=== PATIENT | female | born 1980 | race Caucasian/White ===

== ENCOUNTER 2020-10-17 13:26 | Emergency (ER) | payer OTHER, SELFPAY ==
[2020-10-17 13:26] VITALS: BP 127/81; PULSE 91; RESP 14; TEMP 36.7; O2SAT 99; BMI 24.9
--- NOTE | 2020-10-17 13:41 | XR_ITS ---
PROCEDURE: XR FOOT RT MIN 3V CLINICAL INDICATION: box of tiles fell on top of foot Posttraumatic pain COMPARISON: No exams were available for comparison FINDINGS: No fracture or dislocation. No lytic or blastic change. There is normal mineralization. There are hypertrophic changes at the distal aspect of the 1st metatarsal with soft tissue swelling at this area and some cortical irregularity at the distal aspect of the 1st metatarsal medially. Other findings:None. IMPRESSION: Hypertrophic changes at the distal aspect of the 1st metatarsal with soft tissue swelling. There is some cortical regularity at the distal 1st metatarsal medially which could be due to chronic degenerative change. Infection would be included in the differential diagnosis. Dictated by: Aguila Reynoso MD 10/17/2020 17:31 Aguila Reynoso MD in [place] 10/17/2020 17:31
--- NOTE | 2020-10-17 14:23 | HMH.EDUTC ---
[facility] [place] Disposition Clinical Impression: Right foot injury Qualifiers: Encounter type: initial encounter Qualified Code(s): S99.921A - Unspecified injury of right foot, initial encounter Foot fracture, right Qualifiers: Encounter type: initial encounter Fracture type: closed Qualified Code(s): S92.901A - Unspecified fracture of right foot, initial encounter for closed fracture Disposition: Home, Self-Care Condition on Discharge: Good Instructions: How to Use Crutches, DI for Foot Fracture Additional Instructions: Rest the extremity, apply ice for 15 minutes as tolerated three or four times per day, Wear the ricky wrap for compression, Elevate the extremity as tolerated while you are resting. Take ibuprofen for pain. I sent in a prescription to your pharmacy. Follow up with Dr. Correa (podiatry) or your orthopedist or proposal lead writer of your choice. I put in a referral To Dr. Correa, but make sure you follow up appropriately. Follow up with your regular doctor. GO TO THE ER FOR ANY WORSENING SYMPTOMS Prescriptions: Ibuprofen [Ibuprofen 600mg Tablet] 600 mg PO Q6HP PRN #30 tab PRN Reason: Mild Pain Transmission Status: Received by [facility] #[id number] Referrals: Jose Alberto Olvera [Primary Care Provider] - Forms: Work/School Release Time of Disposition: 14:29 Medical Decision Making - Medical Records Medical records reviewed: No: I reviewed the patient's medical records. - Jonh Inquiry Pt receiving controlled substance: No Vital Signs: 10/17/20 13:26 10/17/20 14:30 Temperature 98.1 F 98.1 F Temperature Source Oral Oral Pulse Rate 91 H Pulse Rate [Right] 91 H Respiratory Rate 14 14 Blood Pressure 127/81 Blood Pressure [Right Arm] 127/81 Blood Pressure Mean [Right Arm] 96 02 Sat by Pulse Oximetry 99 - Radiology Data #1 Image(s): Foot/Toes Image Reviewed: Yes I reviewed the patient's radiology image, Yes I have reviewed radiologist's interpretation Preliminary Findings: Abnormal PROCEDURE: XR FOOT RT MIN 3V CLINICAL INDICATION: box of tiles fell on top of foot Posttraumatic pain COMPARISON: No exams were available for comparison FINDINGS: No fracture or dislocation. No lytic or blastic change. There is normal mineralization. There are hypertrophic changes at the distal aspect of the 1st metatarsal with soft tissue swelling at this area and some cortical irregularity at the distal aspect of the 1st metatarsal medially. Other findings:None. IMPRESSION: Hypertrophic changes at the distal aspect of the 1st metatarsal with soft tissue swelling. There is some cortical regularity at the distal 1st metatarsal medially which could be due to chronic degenerative change. Infection would be included in the differential diagnosis. Dictated by: Aguila Reynoso MD 10/17/2020 17:31 Aguila Reynoso MD in [place] 10/17/2020 17:31 [facility] [place] HPI - General Stated complaint: ao @ 1230 injury to R foot Time Seen by Provider: 10/17/20 14:23 Mode of Arrival: Ambulatory Source of Information: Patient Limitations: No Limitations Description of Symptoms (Recalled from Triage Doc. by RN): pt c/o rt foot pain. pt had a box of tiles fall on it today @ 1145 HEENT Symptoms (Recalled from RN notes): No Resp Symptoms (Recalled from RN notes): No Skin Symptoms (Recalled from RN notes): No MS Symptoms (Recalled from RN notes): Yes Functional Status (Recalled from RN notes): wnl - History of Present Illness Provider Complaint: She states that she was at [employer] earlier today when a heavy box of ceramic tiles fell on her right foot. She came straight here after this occured. She is having right foot pain. She cannot walk on the foot due to pain with bearing weight. - Related Data Previous Rx's Medication Instructions Recorded Ibuprofen [Ibuprofen 600mg 600 mg PO Q6HP PRN #30 tab 10/17/20 Tablet] Allergies Allergy/AdvReac Type Severity Reaction Status Date / Time No Known Marlon
[2020-10-17 14:30] VITALS: BP 127/81; PULSE 91; RESP 14; TEMP 36.7; O2SAT 99
== END 2020-10-17 14:36 | disposition home or self-care (01) ==
PROVIDERS: Emergency Provider Nurse Practitioner Family; PCP Family Medicine
DX: S99.921A Unspecified injury of right foot, initial encounter (principal); W20.8XXA Other cause of strike by thrown, projected or falling object, initial encounter; Y92.89 Other specified places as the place of occurrence of the external cause; F17.210 Nicotine dependence, cigarettes, uncomplicated
CPT/HCPCS: 73630; 99202; G0463

== ENCOUNTER → 2022-10-30 10:41 | Outpatient (CLI) | payer BC, SELFPAY ==
--- NOTE | 2022-10-30 10:44 | MM_ITS ---
PROCEDURE INFORMATION: Exam: Bilateral Screening 3D Mammography Exam date and time: 10/30/2022 10:55 AM Age: 42 years old Clinical indication: Baseline. Concern for: right thickness and painful area marked. Maternal aunts had breast cancer. TECHNIQUE: Imaging protocol: Bilateral Screening tomosynthesis and 2D mammography including computer-aided detection (CAD) when performed. COMPARISON: No relevant prior studies available. FINDINGS: MAMMOGRAPHY: Breast composition: The breasts are extremely dense, which lowers the sensitivity of mammography. Mass: None. Architectural distortion: None. Calcifications: No suspicious calcifications. Asymmetric density: None. Skin thickening: None. Axillary adenopathy: None. Other: No focal findings at the triangular skin marker placed in the upper outer right breast. IMPRESSION: Patient will be recalled for right diagnostic spot compression in CC and MLO and right sonography for further evaluation history of thickness and pain in the right upper outer quadrant. Further evaluation of a palpable abnormality/pain should be based on clinical grounds regardless of radiographic findings or lack thereof. ASSESSMENT: BI-RADS Category 0: Incomplete- Need Additional Imaging Evaluation and/or Prior Mammograms for Comparison
== END ==
PROVIDERS: PCP Family Medicine; Visit Provider Family Medicine
DX: Z12.31 Encounter for screening mammogram for malignant neoplasm of breast (principal)
CPT/HCPCS: 77063; 77067

== ENCOUNTER → 2022-12-22 13:43 | Outpatient (CLI) | payer BC, SELFPAY ==
--- NOTE | 2022-12-22 13:50 | MM_ITS ---
PROCEDURE INFORMATION: Exam: US Right Breast, Complete MG Right Diagnostic Breast Tomosynthesis Exam date and time: 12/22/2022 1:43 PM Age: 42 years old Clinical indication: Patient recalled on the basis of a screening mammogram for further evaluation; Right breast; palpable mass and pain TECHNIQUE: Imaging protocol: Complete ultrasound of all four quadrants of the right breast and the retroareolar regions, including ultrasound of the axilla when performed. Right Diagnostic tomosynthesis and 2D mammography including computer-aided detection (CAD) when performed. Unilateral or bilateral exam. COMPARISON: MG MM DIG SCREENING MAMM BI W/CAD 10/30/2022 10:55 AM FINDINGS: MAMMOGRAPHY: Digital diagnostic spot compression views of the right upper outer quadrant where the patient reports a palpable abnormality do not demonstrate any suspicious masses. ULTRASOUND: Sonographic images of the right upper outer quadrant where the patient reports a palpable abnormality demonstrates a 1.8 cm benign cyst. Additional cysts are scattered throughout the upper quadrants. No solid masses. No architectural distortion or acoustical shadowing. No axillary adenopathy. IMPRESSION: No mammographic or sonographic evidence of malignancy. Palpable abnormality in the right upper outer quadrant corresponds to benign cystic change sonographically.Further evaluation of a palpable abnormality should be based on clinical grounds regardless of radiographic findings or lack thereof.Annual bilateral mammographic screening is recommended unless otherwise clinically indicated. ASSESSMENT: BI-RADS Category 2: Benign
== END ==
LOC: RAD 13:45
PROVIDERS: PCP Family Medicine; Visit Provider Family Medicine
DX: R92.8 Other abnormal and inconclusive findings on diagnostic imaging of breast (principal)
CPT/HCPCS: 76641; 77061; 77065; G0279